=== PATIENT | male | born 1990 | race Two or more races ===

== ENCOUNTER 2018-02-23 15:48 | Inpatient (IN) | payer OTHER, MEDICAID ==
[~2018-02-23] VITALS: Ht 165.1 cm; Wt 73.5 kg
[2018-02-23 18:18] LABS: BASOPHILS % 0.5 % (0.0-2.0); EOSINOPHILS % 0.5 % (0.0-5.0); HEMATOCRIT. 46.7 % (42.0-52.0); HEMOGLOBIN. 16.1 g/dL (14.0-18.0); LYMPHOCYTES % 23.4 % (20.0-50.0); MEAN CORPUSCULAR HEMOGLOBIN 32.4 pg (28.0-32.0); MEAN CORPUSCULAR VOLUME 93.7 fL (80.0-94.0); MEAN PLATELET VOLUME 9.1 fl (7.4-10.4); MONOCYTES % 9.9 % (2.0-8.0); NEUTROPHILS % 65.7 % (40.0-76.0); PLATELET 182 x1000/uL (130-400); RED BLOOD CELL COUNT 4.98 mill/uL (4.7-6.1); RED CELL DISTRIBUTION WIDTH 13.5 % (11.6-14.6)
[2018-02-23 18:29] LABS: CHLORIDE 105 mEq/L (98-107); D-DIMER < 0.19 mg/L FEU (<0.50); INR 1.1; PROTHROMBIN TIME 10.9 sec (9.4-11.6)
[2018-02-23] MEDS ORDERED: IOHEXOL-350 100 ML BOTTLE ONE (20:26)
[2018-02-23 21:55] LABS: CLARITY URINE CLEAR (CLEAR); COLOR URINE YELLOW (YELLOW); KETONES URINE NEGATIVE (NEGATIVE); LEUKOCYTE ESTERASE URINE NEGATIVE (NEGATIVE); NITRITE URINE NEGATIVE (NEGATIVE); OCCULT BLOOD URINE NEGATIVE (NEGATIVE); PH URINE 8.5 (4.5-8.0); PROTEIN URINE TRACE (NEGATIVE); SPECIFIC GRAVITY URINE 1.066 (1.005-1.030); UROBILINOGEN URINE 0.2 E.U./dL (0.2-1.0)
[2018-02-23] MEDS ORDERED: KETOROLAC 30MG/ML VIAL IV ONE (22:00)
[2018-02-23] MEDS ORDERED: ASPIRIN 325MG TABLET PO ONE (22:00)
[2018-02-23] MEDS ORDERED: CLONIDINE 0.1MG TABLET PO PRN (23:00)
[2018-02-23] MEDS ORDERED: IPRATROPIUM/ALBUTEROL 0.5-3(2.5)MG/3ML NEB INH PRN (23:00)
[2018-02-23] MEDS ORDERED: MAGNESIUM/ALUMINUM HYDROXIDE/SIMETHICONE 30ML UDC PO PRN (23:00)
[2018-02-23] MEDS ORDERED: ONDANSETRON HCL 4MG/2ML VIAL IV PRN (23:00)
[2018-02-23] MEDS ORDERED: ACETAMINOPHEN 325MG TABLET PO PRN (23:00)
[2018-02-23] MEDS ORDERED: DOCUSATE SODIUM 100MG CAPSULE PO PRN (23:00)
[2018-02-23] MEDS ORDERED: HYDROCODONE/ACETAMINOPHEN 5/325MG TABLET PO PRN (23:00)
[2018-02-23 23:13] LABS: CHLORIDE 105 mEq/L (98-107)
[2018-02-24 00:44] VITALS: BP 146/71
[2018-02-24] MEDS ORDERED: POTASSIUM CHLORIDE 20MEQ TABLET SR PO NR (01:45)
[2018-02-24 04:00] VITALS: BP 130/76
[2018-02-24 06:47] LABS: BASOPHILS % 0.7 % (0.0-2.0); EOSINOPHILS % 1.7 % (0.0-5.0); HEMATOCRIT. 46.6 % (42.0-52.0); HEMOGLOBIN. 15.9 g/dL (14.0-18.0); LYMPHOCYTES % 29.3 % (20.0-50.0); MEAN CORPUSCULAR HEMOGLOBIN 32.2 pg (28.0-32.0); MEAN CORPUSCULAR VOLUME 94.3 fL (80.0-94.0); MEAN PLATELET VOLUME 9.8 fl (7.4-10.4); MONOCYTES % 9.5 % (2.0-8.0); NEUTROPHILS % 58.8 % (40.0-76.0); PLATELET 158 x1000/uL (130-400); RED BLOOD CELL COUNT 4.94 mill/uL (4.7-6.1)
[2018-02-24 08:00] VITALS: BP 140/73
[2018-02-24 08:28] LABS: CREATINE KINASE MB FRACTION 0.8 ng/mL (0.5-3.6)
[2018-02-24] MEDS: ASPIRIN 81MG EC TABLET PO SCH (08:47)
[2018-02-24] MEDS: ENOXAPARIN 40MG/0.4ML SYR SUBCUT SCH (08:47)
[2018-02-24 10:18] LABS: *AMPHETAMINES SCREEN URINE NEGATIVE (NEGATIVE); *BARBITURATES SCREEN URINE NEGATIVE (NEGATIVE); *BENZODIAZEPINES SCREEN URINE NEGATIVE (NEGATIVE); *COCAINE SCREEN URINE NEGATIVE (NEGATIVE)
[2018-02-24 10:19] LABS: CANNABINOID URINE SCREEN PRESUMTIVE POSITIVE (NEGATIVE); METHADONE URINE SCREEN NEGATIVE (NEGATIVE); OPIATES URINE SCREEN NEGATIVE (NEGATIVE); PHENCYCLIDINE URINE SCREEN NEGATIVE (NEGATIVE)
[2018-02-24] MEDS ORDERED: HYDROCODONE/ACETAMINOPHEN 5/325MG TABLET PO PRN (10:45)
[2018-02-24] MEDS ORDERED: ACETAMINOPHEN 325MG TABLET PO PRN (10:45)
[2018-02-24] MEDS ORDERED: GUAIFENESIN 200MG/10ML SUGAR FREE UDC PO PRN (10:45)
[2018-02-24] MEDS ORDERED: ACETAMINOPHEN 650MG SUPP PR PRN (10:45)
[2018-02-24] MEDS ORDERED: DOCUSATE SODIUM 100MG CAPSULE PO PRN (10:45)
[2018-02-24] MEDS ORDERED: NA PHOS,M-B/NA PHOS,DI-BA ENEMA 118ML PR PRN (10:45)
[2018-02-24] MEDS ORDERED: MAGNESIUM/ALUMINUM HYDROXIDE/SIMETHICONE 30ML UDC PO PRN (10:45)
[2018-02-24] MEDS ORDERED: ONDANSETRON HCL 4MG/2ML VIAL IV PRN (10:45)
[2018-02-24] MEDS ORDERED: LORAZEPAM 0.5MG TABLET PO PRN (10:45)
[2018-02-24] MEDS ORDERED: MORPHINE SULFATE 2 MG/ML CPJ (NOT FOR IM USE) IV PRN (10:45)
[2018-02-24] MEDS ORDERED: ACETAMINOPHEN 650MG/20.3ML UDC GT PRN (10:45)
[2018-02-24] MEDS ORDERED: DIPHENHYDRAMINE 50MG/ML VIAL IV PRN (10:45)
[2018-02-24 12:00] VITALS: BP 127/80
[2018-02-24 12:53] LABS: CHLORIDE 106 mEq/L (98-107)
[2018-02-24 12:56] LABS: PHOSPHORUS 3.4 mg/dL (2.5-4.9)
[2018-02-24 16:36] VITALS: BP 137/82
[2018-02-24 17:03] LABS: CREATINE KINASE 105 IU/L (39-308); CREATINE KINASE MB FRACTION 1.1 ng/mL (0.5-3.6)
[2018-02-24 19:58] VITALS: BP 126/81
[2018-02-25] VITALS: BP 130/55
[2018-02-25 04:00] VITALS: BP 120/64
[2018-02-25 08:14] VITALS: BP 138/83
[2018-02-25] MEDS: ASPIRIN 81MG EC TABLET PO SCH (08:28)
[2018-02-25] MEDS: ENOXAPARIN 40MG/0.4ML SYR SUBCUT SCH (08:29)
[2018-02-25] MEDS ORDERED: GADOBENATE DIMEGLUMINE 529 MG/ML 10ML IV ONE (11:49)
== END 2018-02-25 16:54 | disposition home or self-care (01) | DRG 204 ==
LOC: ER 16:36 → 8WST 21:16 → EDBEDREQ 21:19 → EDBEDREQTM 21:19 → ENRESERV 23:49
PROVIDERS: ADMIT Internal Medicine; ATTEND Internal Medicine
DX: R07.81 Pleurodynia (principal); M48.02 Spinal stenosis, cervical region; W01.0XXA Fall on same level from slipping, tripping and stumbling without subsequent striking against object, initial encounter; E87.6 Hypokalemia; I10 Essential (primary) hypertension; F12.10 Cannabis abuse, uncomplicated; F17.200 Nicotine dependence, unspecified, uncomplicated; Z79.82 Long term (current) use of aspirin; Z82.49 Family history of ischemic heart disease and other diseases of the circulatory system; Y93.89 Activity, other specified; Y92.89 Other specified places as the place of occurrence of the external cause; Y99.8 Other external cause status; Z72.89 Other problems related to lifestyle
CPT/HCPCS: 36415; 70450; 70551; 70552; 71045; 71275; 72141; 72146; 72148; 73562; 80048; 80053; 80061; 80305; 81003; 82550; 82553; 83735; 84100; 84443; 84484; 85025; 85379; 85610; 85730; 93005; 93306; 93880; 93970; 96374; 97162; 97166; 99285; A9577; G0482; J1650; J1885; Q9967

== ENCOUNTER 2018-05-14 17:49 | Emergency (ER) | payer OTHER, MEDICAID ==
[~2018-05-14] VITALS: Ht 165.1 cm; Wt 73.0 kg
[2018-05-14 18:05] VITALS: BP 138/97
== END 2018-05-15 03:02 | disposition left against medical advice (07) ==
LOC: ER 17:49
DX: Z53.21 Procedure and treatment not carried out due to patient leaving prior to being seen by health care provider (principal); F17.201 Nicotine dependence, unspecified, in remission

== ENCOUNTER 2018-05-15 03:10 | Emergency (ER) | payer OTHER, MEDICAID ==
[~2018-05-15] VITALS: Ht 165.1 cm; Wt 71.0 kg
[2018-05-15] MEDS ORDERED: MORPHINE SULFATE 4 MG/ML CPJ (NOT FOR IM USE) IV STA (04:50)
[2018-05-15] MEDS ORDERED: ONDANSETRON HCL 4MG/2ML VIAL IV STA (04:50)
[2018-05-15] MEDS ORDERED: KETOROLAC 30MG/ML VIAL IV STA (04:50)
[2018-05-15] MEDS ORDERED: FAMOTIDINE 20MG/2ML VIAL IV STA (04:50)
[2018-05-15 05:33] LABS: BASOPHILS % 0.3 % (0.0-2.0); EOSINOPHILS % 0.5 % (0.0-5.0); HEMATOCRIT. 49.3 % (42.0-52.0); HEMOGLOBIN. 17.1 g/dL (14.0-18.0); MEAN CORPUSCULAR HEMOGLOBIN 32.5 pg (28.0-32.0); MEAN CORPUSCULAR VOLUME 93.9 fL (80.0-94.0); MEAN PLATELET VOLUME 9.4 fl (7.4-10.4); MONOCYTES % 10.8 % (2.0-8.0); NEUTROPHILS % 77.4 % (40.0-76.0); PLATELET 206 x1000/uL (130-400); RED BLOOD CELL COUNT 5.25 mill/uL (4.7-6.1); RED CELL DISTRIBUTION WIDTH 12.9 % (11.6-14.6)
[2018-05-15 05:34] LABS: CHLORIDE 99 mEq/L (98-107)
[2018-05-15 05:36] LABS: PROTHROMBIN TIME 10.3 sec (9.4-11.6)
[2018-05-15 06:23] VITALS: BP 155/85
[2018-05-15 06:41] LABS: CLARITY URINE CLEAR (CLEAR); COLOR URINE ORANGE (YELLOW); KETONES URINE TRACE (NEGATIVE); LEUKOCYTE ESTERASE URINE NEGATIVE (NEGATIVE); NITRITE URINE NEGATIVE (NEGATIVE); OCCULT BLOOD URINE NEGATIVE (NEGATIVE); PROTEIN URINE 1+ (NEGATIVE); SPECIFIC GRAVITY URINE 1.032 (1.005-1.030)
== END 2018-05-15 06:23 | disposition home or self-care (01) ==
LOC: ER 03:10
DX: R07.89 Other chest pain (principal); F17.210 Nicotine dependence, cigarettes, uncomplicated; Z87.81 Personal history of (healed) traumatic fracture
CPT/HCPCS: 36415; 71045; 80053; 81003; 83690; 85025; 85610; 93005; 96374; 96375; 99285; J1885; J2270; J2405; J3490; Z7610

== ENCOUNTER 2018-07-30 21:43 | Emergency (ER) | payer OTHER, MEDICAID ==
[~2018-07-30] VITALS: Ht 165.1 cm; Wt 72.0 kg
[2018-07-30] MEDS ORDERED: SODIUM CHLORIDE 0.9% 1,000 ML IV ONE (22:53)
[2018-07-30] MEDS ORDERED: ONDANSETRON HCL 4MG/2ML VIAL IV STA (22:53)
[2018-07-30 23:27] LABS: BASOPHILS % 0.7 % (0.0-2.0); EOSINOPHILS % 0.6 % (0.0-5.0); HEMATOCRIT. 50.8 % (42.0-52.0); HEMOGLOBIN. 17.7 g/dL (14.0-18.0); LYMPHOCYTES % 10.1 % (20.0-50.0); MEAN CORPUSCULAR HEMOGLOBIN 32.4 pg (28.0-32.0); MEAN CORPUSCULAR VOLUME 93.2 fL (80.0-94.0); MONOCYTES % 10.5 % (2.0-8.0); NEUTROPHILS % 78.1 % (40.0-76.0); PLATELET 225 x1000/uL (130-400); RED BLOOD CELL COUNT 5.45 mill/uL (4.7-6.1); RED CELL DISTRIBUTION WIDTH 12.8 % (11.6-14.6)
[2018-07-30 23:29] LABS: CHLORIDE 96 mEq/L (98-107)
[2018-07-30 23:31] LABS: PROTHROMBIN TIME 10.2 sec (9.1-11.1)
[2018-07-31] MEDS ORDERED: MORPHINE SULFATE 4 MG/ML CPJ (NOT FOR IM USE) IV ONE (01:00)
[2018-07-31] MEDS ORDERED: SODIUM CHLORIDE 0.9% 1,000 ML IV ONE (01:00)
[2018-07-31 02:40] VITALS: BP 133/81
== END 2018-07-31 03:09 | disposition short-term general hospital (02) ==
LOC: ER 21:43
DX: K85.90 Acute pancreatitis without necrosis or infection, unspecified (principal)
CPT/HCPCS: 36415; 71045; 74176; 80053; 83690; 84484; 85025; 85610; 93005; 96361; 96374; 96375; 99285; J2270; J2405; J7030

== ENCOUNTER 2018-12-28 21:46 | Inpatient (IN) | payer MEDICAID, OTHER ==
[~2018-12-28] VITALS: Ht 165.1 cm; Wt 75.7 kg
[2018-12-29] MEDS ORDERED: FAMOTIDINE 20MG/2ML VIAL IV STA (02:56)
[2018-12-29] MEDS ORDERED: KETOROLAC 30MG/ML VIAL IV STA (02:56)
[2018-12-29] MEDS ORDERED: ONDANSETRON HCL 4MG/2ML INJ IV STA (02:56)
[2018-12-29 03:30] LABS: CLARITY URINE CLEAR (CLEAR); COLOR URINE DARK YELLOW (YELLOW); KETONES URINE 2+ (NEGATIVE); LEUKOCYTE ESTERASE URINE NEGATIVE (NEGATIVE); NITRITE URINE NEGATIVE (NEGATIVE); OCCULT BLOOD URINE NEGATIVE (NEGATIVE); PROTEIN URINE 2+ (NEGATIVE)
[2018-12-29 03:45] LABS: BASOPHILS % 0.5 % (0.0-2.0); EOSINOPHILS % 1.3 % (0.0-5.0); HEMATOCRIT. 51.4 % (42.0-52.0); HEMOGLOBIN. 17.6 g/dL (14.0-18.0); LYMPHOCYTES % 12.6 % (20.0-50.0); MEAN CORPUSCULAR HEMOGLOBIN 31.6 pg (28.0-32.0); MEAN CORPUSCULAR VOLUME 92.5 fL (80.0-94.0); MEAN PLATELET VOLUME 8.9 fl (7.4-10.4); MONOCYTES % 10.7 % (2.0-8.0); NEUTROPHILS % 74.9 % (40.0-76.0); PLATELET 228 x1000/uL (130-400); RED BLOOD CELL COUNT 5.56 mill/uL (4.7-6.1); RED CELL DISTRIBUTION WIDTH 13.4 % (11.6-14.6)
[2018-12-29 03:54] LABS: CHLORIDE 100 mEq/L (98-107); PROTHROMBIN TIME 9.8 sec (9.1-11.1)
[2018-12-29 04:02] LABS: ETHANOL BLOOD < 10 mg/dL
[2018-12-29] MEDS ORDERED: SODIUM CHLORIDE 0.9% 1,000 ML IV ONE (05:00)
[2018-12-29] MEDS ORDERED: MORPHINE SULFATE 4 MG/ML CPJ (NOT FOR IM USE) IV ONE (05:15)
[2018-12-29] MEDS ORDERED: CLONIDINE 0.1MG TABLET PO PRN (10:15)
[2018-12-29] MEDS ORDERED: LORAZEPAM 2MG/ML CPJ IV PRN (10:15)
[2018-12-29] MEDS ORDERED: MAGNESIUM/ALUMINUM HYDROXIDE/SIMETHICONE 30ML UDC PO PRN (10:15)
[2018-12-29] MEDS ORDERED: ONDANSETRON HCL 4MG/2ML INJ IV PRN (10:15)
[2018-12-29 10:40] VITALS: BP 107/75
[2018-12-29] MEDS: ENOXAPARIN 40MG/0.4ML SYR SUBCUT SCH (11:30)
[2018-12-29] MEDS: ACETAMINOPHEN 325MG TABLET PO PRN (11:45)
[2018-12-29] MEDS: SODIUM CHLORIDE 0.9% 1,000 ML IV SCH ×2 (11:46→17:34)
[2018-12-29] MEDS: PANTOPRAZOLE 40MG DR TABLET PO SCH (11:46)
[2018-12-29 12:00] VITALS: BP 112/60
[2018-12-29] MEDS: METRONIDAZOLE 500 MG PREMIX 100 ML IV SCH ×2 (13:54→20:18)
[2018-12-29 14:11] LABS: *BARBITURATES SCREEN URINE NEGATIVE (NEGATIVE); *BENZODIAZEPINES SCREEN URINE NEGATIVE (NEGATIVE); *COCAINE SCREEN URINE NEGATIVE (NEGATIVE)
[2018-12-29 14:12] LABS: *AMPHETAMINES SCREEN URINE NEGATIVE (NEGATIVE); CANNABINOID URINE SCREEN NEGATIVE (NEGATIVE); METHADONE URINE SCREEN NEGATIVE (NEGATIVE); OPIATES URINE SCREEN PRESUMTIVE POSITIVE (NEGATIVE); PHENCYCLIDINE URINE SCREEN NEGATIVE (NEGATIVE)
[2018-12-29] MEDS: MORPHINE SULFATE 4 MG/ML CPJ (NOT FOR IM USE) IV PRN ×2 (15:51→22:34)
[2018-12-29 16:00] VITALS: BP 122/62
[2018-12-29 20:00] VITALS: BP 153/96
[2018-12-30] VITALS: BP 171/99
[2018-12-30] MEDS: SODIUM CHLORIDE 0.9% 1,000 ML IV SCH ×3 (01:53→10:30)
[2018-12-30 04:00] VITALS: BP 147/88
[2018-12-30] MEDS: METRONIDAZOLE 500 MG PREMIX 100 ML IV SCH ×2 (04:38→11:27)
[2018-12-30 08:00] VITALS: BP 151/98
[2018-12-30] MEDS: ENOXAPARIN 40MG/0.4ML SYR SUBCUT SCH (08:38)
[2018-12-30] MEDS: MORPHINE SULFATE 4 MG/ML CPJ (NOT FOR IM USE) IV PRN ×3 (08:59→22:17)
[2018-12-30] MEDS ORDERED: POTASSIUM CHLORIDE 20MEQ TABLET SR PO SCH (09:30)
[2018-12-30] MEDS: PANTOPRAZOLE 40MG DR TABLET PO SCH (10:28)
[2018-12-30 12:00] VITALS: BP 141/82
[2018-12-30 15:20] LABS: CHLORIDE 103 mEq/L (98-107)
[2018-12-30 15:23] LABS: HEMATOCRIT. 47.8 % (42.0-52.0); HEMOGLOBIN. 15.8 g/dL (14.0-18.0); MEAN CORPUSCULAR HEMOGLOBIN 31.3 pg (28.0-32.0); MEAN CORPUSCULAR VOLUME 94.4 fL (80.0-94.0); MEAN PLATELET VOLUME 9.9 fl (7.4-10.4); PLATELET 222 x1000/uL (130-400); RED BLOOD CELL COUNT 5.07 mill/uL (4.7-6.1)
[2018-12-30 16:03] LABS: PLATELET ESTIMATE NORMAL
[2018-12-30] MEDS ORDERED: FOLIC ACID 1 MG, MVI, ADULT NO.1 10 ML in DEXTROSE 5% WATER 1,000 ML IV SCH ×3 (18:00)
[2018-12-30] MEDS: THIAMINE HCL 100MG TABLET PO SCH (18:03)
[2018-12-30 20:00] VITALS: BP 151/100
[2018-12-30] MEDS: ACETAMINOPHEN 325MG TABLET PO PRN (21:00)
[2018-12-30] MEDS: CHLORDIAZEPOXIDE 25MG CAPSULE PO SCH (22:16)
[2018-12-31] VITALS: BP 116/67
[2018-12-31] MEDS: SODIUM CHLORIDE 0.9% 1,000 ML IV SCH (03:50)
[2018-12-31] MEDS: MORPHINE SULFATE 4 MG/ML CPJ (NOT FOR IM USE) IV PRN ×2 (03:51→08:45)
[2018-12-31 04:00] VITALS: BP 120/83
[2018-12-31 05:48] LABS: BASOPHILS % 0.5 % (0.0-2.0); EOSINOPHILS % 3.6 % (0.0-5.0); HEMATOCRIT. 41.6 % (42.0-52.0); HEMOGLOBIN. 14.3 g/dL (14.0-18.0); LYMPHOCYTES % 15.6 % (20.0-50.0); MEAN CORPUSCULAR HEMOGLOBIN 31.9 pg (28.0-32.0); MEAN CORPUSCULAR VOLUME 93.3 fL (80.0-94.0); MEAN PLATELET VOLUME 9.5 fl (7.4-10.4); MONOCYTES % 11.4 % (2.0-8.0); NEUTROPHILS % 68.9 % (40.0-76.0); PLATELET 189 x1000/uL (130-400); RED BLOOD CELL COUNT 4.46 mill/uL (4.7-6.1); RED CELL DISTRIBUTION WIDTH 13.4 % (11.6-14.6)
[2018-12-31] MEDS: CHLORDIAZEPOXIDE 25MG CAPSULE PO SCH (06:32)
[2018-12-31 06:51] LABS: CHLORIDE 101 mEq/L (98-107)
[2018-12-31] MEDS: ENOXAPARIN 40MG/0.4ML SYR SUBCUT SCH (08:44)
[2018-12-31] MEDS: THIAMINE HCL 100MG TABLET PO SCH (08:44)
[2018-12-31] MEDS ORDERED: FAMOTIDINE 20MG TABLET PO SCH (09:00)
[2018-12-31 12:00] VITALS: BP 135/89
[2018-12-31] MEDS: ACETAMINOPHEN 325MG TABLET PO PRN (12:15)
[2018-12-31 13:06] VITALS: BP 135/89
== END 2018-12-31 14:26 | disposition home or self-care (01) | DRG 282 ==
LOC: ER 21:46 → 6EST 12-29 05:06 → ENRESERV 12-29 07:36
PROVIDERS: ADMIT Internal Medicine Nephrology; ATTEND Internal Medicine Nephrology
DX: K85.90 Acute pancreatitis without necrosis or infection, unspecified (principal); E87.6 Hypokalemia; F17.200 Nicotine dependence, unspecified, uncomplicated; F10.20 Alcohol dependence, uncomplicated; Z90.49 Acquired absence of other specified parts of digestive tract; Z71.41 Alcohol abuse counseling and surveillance of alcoholic
CPT/HCPCS: 36415; 71045; 74176; 76700; 80048; 80305; 93005; 96374; 99285; G0482; J1650; J1885; J2270; J2405; J3490; J7030; J7070

== ENCOUNTER 2019-04-15 03:00 | Emergency (ER) | payer MEDICAID ==
[~2019-04-15] VITALS: Ht 165.1 cm; Wt 77.0 kg
[2019-04-15] MEDS ORDERED: SODIUM CHLORIDE 0.9% 1,000 ML IV ONE ×2 (06:52→09:15)
[2019-04-15] MEDS ORDERED: VISCOUS LIDOCAINE 2% 15 ML UDC PO STA (06:52)
[2019-04-15] MEDS ORDERED: METOCLOPRAMIDE HCL 10MG/2ML VIAL IV STA (06:52)
[2019-04-15] MEDS ORDERED: FAMOTIDINE 20MG/2ML VIAL IV STA (06:52)
[2019-04-15] MEDS ORDERED: MAGNESIUM/ALUMINUM HYDROXIDE/SIMETHICONE 30ML UDC PO STA (06:52)
[2019-04-15] MEDS ORDERED: DIPHENHYDRAMINE 50MG/ML VIAL IV ONE (07:00)
[2019-04-15 08:13] LABS: BASOPHILS % 0.8 % (0.0-2.0); EOSINOPHILS % 0.2 % (0.0-5.0); HEMOGLOBIN. 17.8 g/dL (14.0-18.0); LYMPHOCYTES % 10.2 % (20.0-50.0); MEAN CORPUSCULAR HEMOGLOBIN 31.7 pg (28.0-32.0); MEAN CORPUSCULAR VOLUME 92.6 fL (80.0-94.0); MEAN PLATELET VOLUME 9.5 fl (7.4-10.4); MONOCYTES % 8.3 % (2.0-8.0); NEUTROPHILS % 80.5 % (40.0-76.0); PLATELET 244 x1000/uL (130-400); RED BLOOD CELL COUNT 5.61 mill/uL (4.7-6.1); RED CELL DISTRIBUTION WIDTH 13.8 % (11.6-14.6)
[2019-04-15 08:29] LABS: CHLORIDE 101 mEq/L (98-107)
[2019-04-15] MEDS ORDERED: ONDANSETRON 4MG ODT PO STA (09:10)
[2019-04-15] MEDS ORDERED: MORPHINE SULFATE 4 MG/ML CPJ (NOT FOR IM USE) IV ONE (09:15)
[2019-04-15 11:25] LABS: CLARITY URINE CLEAR (CLEAR); COLOR URINE YELLOW (YELLOW); KETONES URINE NEGATIVE (NEGATIVE); LEUKOCYTE ESTERASE URINE NEGATIVE (NEGATIVE); NITRITE URINE NEGATIVE (NEGATIVE); OCCULT BLOOD URINE NEGATIVE (NEGATIVE); PH URINE 6.5 (4.5-8.0); PROTEIN URINE NEGATIVE (NEGATIVE); SPECIFIC GRAVITY URINE 1.019 (1.005-1.030); UROBILINOGEN URINE 0.2 E.U./dL (0.2-1.0)
[2019-04-15 13:27] VITALS: BP 149/96
== END 2019-04-15 13:33 | disposition home or self-care (01) ==
LOC: ER 03:00 → EDBEDREQ 09:09 → ENRESERV 12:42 → EDRESERV 12:42 → CANRESERV 12:42 → CANBEDREQ 13:09 → ER 13:33
DX: K85.90 Acute pancreatitis without necrosis or infection, unspecified (principal); F10.10 Alcohol abuse, uncomplicated; Z90.49 Acquired absence of other specified parts of digestive tract
CPT/HCPCS: 36415; 80053; 81003; 83690; 85025; 93005; 96374; 96375; 99284; J1200; J2270; J2765; J3490; J7030

== ENCOUNTER 2020-12-02 10:03 | Emergency (ER) | payer SELFPAY ==
[~2020-12-02] VITALS: Ht 165.1 cm; Wt 79.0 kg
[2020-12-02] MEDS ORDERED: HYDROCODONE/ACETAMINOPHEN 5/325MG TABLET PO ONE (10:45)
[2020-12-02 10:51] VITALS: BP 163/115
== END 2020-12-02 11:03 | disposition home or self-care (01) ==
LOC: ER 10:41
DX: F10.10 Alcohol abuse, uncomplicated (principal); Y90.9 Presence of alcohol in blood, level not specified
CPT/HCPCS: 99282